=== PATIENT | female | born 1970 | race Caucasian/White ===

== ENCOUNTER 2020-01-13 10:01 | Day surgery (SDC) | payer OTHER ==
[~2020-01-13] VITALS: Ht 167.6 cm; Wt 77.3 kg
[2020-01-13] MEDS ORDERED: ONDANSETRON HCL 4 MG/2 ML VIAL IVP ONE (10:02)
[2020-01-13] MEDS ORDERED: FentaNYL CITRATE-PF 100 MCG/2 ML VIAL IVP ONE (10:02)
[2020-01-13] MEDS ORDERED: MIDAZOLAM HCL 2 MG/2 ML VIAL IVP ONE (10:02)
[2020-01-13] MEDS ORDERED: DEXAMETHASONE SOD PHOS 4 MG/ML VIAL IVP ONE (10:02)
[2020-01-13] MEDS ORDERED: ROCURONIUM BROMIDE 10 MG/ML 5 ML VIAL IVP ONE (10:02)
[2020-01-13] MEDS ORDERED: PROPOFOL 1% 20 ML VIAL IVP ONE (10:02)
[2020-01-13] MEDS ORDERED: GLYCOPYRROLATE 0.2 MG/ML VIAL IM ONE (10:02)
[2020-01-13] MEDS ORDERED: NEOSTIGMINE METHYLSULFATE 1 MG/ML 10 ML VIAL IVP ONE (10:02)
[2020-01-13] MEDS ORDERED: CeFAZolin 2 GM/DEXTROSE 50 ML IV ONE (10:08)
[2020-01-13] MEDS ORDERED: RINGERS SOLUTION,LACTATED 1,000 ML IV ONE ×2 (10:08→12:37)
[2020-01-13 10:40] LABS: COVID AG,FIA SOURCE NASOPHARYNGEAL
[2020-01-13 10:43] LABS: BASOPHILS % (AUTO) 1.1 % (0.0-2.0); EOSINOPHILS % (AUTO) 1.6 % (1.0-6.0); HEMATOCRIT 40.5 % (36-46); HEMOGLOBIN 13.5 g/dL (12.0-16.0); LYMPHOCYTES # (AUTO) 1.6 K/uL (1.0-4.8); LYMPHOCYTES % (AUTO) 33.6 % (22.0-44.0); MEAN CORPUSCULAR HEMOGLOBIN 30.7 pg (26.0-34.0); MEAN CORPUSCULAR HGB CONC 33.3 G/dL (31.0-37.0); MEAN CORPUSCULAR VOLUME 92 fL (80-100); MONOCYTES # (AUTO) 0.5 K/uL (0.1-1.0); MONOCYTES % (AUTO) 10.3 % (2.0-9.0); NEUTROPHILS # (AUTO) 2.5 K/uL (1.8-7.7); NEUTROPHILS % (AUTO) 53.4 % (40.0-70.0); PLATELET COUNT (AUTO) 150 K/uL (150-450); RED CELL DISTRIBUTION WIDTH 12.6 % (11.5-14.5)
[2020-01-13 10:50] LABS: CALCIUM, TOTAL 8.8 mg/dL (8.8-10.5); CREATININE 1.18 mg/dL (0.60-1.30); POTASSIUM 4.5 mmol/L (3.5-5.1)
[2020-01-13 10:55] LABS: PROTHROMBIN TIME 10.9 SEC (9.4-11.6)
[2020-01-13 10:58] LABS: ALBUMIN 3.5 g/dL (3.4-5.0); BILIRUBIN,TOTAL 1.6 mg/dL (0.1-1.0); TOTAL PROTEIN, SERUM 6.8 g/dL (6.4-8.2)
[2020-01-13] MEDS: RINGERS SOLUTION,LACTATED 1,000 ML IV ONE (11:15)
[2020-01-13] MEDS: CeFAZolin 2 GM/DEXTROSE 50 ML IV ONE (11:59)
[2020-01-13] MEDS: BUPIVACAINE/EPI/PF 0.5% 30 ML VIAL ONE (13:15)
== END 2020-01-13 14:00 | disposition home or self-care (01) ==
LOC: SURGERY 10:01 → EDBD 10:01 → SURGERY 14:00
PROVIDERS: ATTEND Surgery
DX: K64.8 Other hemorrhoids (principal); K64.4 Residual hemorrhoidal skin tags; Z79.899 Other long term (current) drug therapy; Z98.890 Other specified postprocedural states
CPT/HCPCS: 36415; 46260; 80053; 85025; 85610; 85730; 87426; 93005; J0690 ×2; J1100; J2250; J2405; J2704; J3010; J3490 ×3; J7120